=== PATIENT | female | born 1935 | race Caucasian/White ===

== ENCOUNTER 2023-02-17 15:06 | Emergency (ER) | payer MEDICARE, OTHER ==
[2023-02-17] MEDS ORDERED: Sodium Chloride 0.9% 10 ML Syringe FLUSH PRN (15:13)
[2023-02-17] MEDS ORDERED: Sodium Chloride 0.9% 1,000 ML IV ONE ×2 (15:13→18:14)
[2023-02-17 15:37] VITALS: PULSE 90
[2023-02-17] MEDS ORDERED: HYDROmorphone 0.5 MG/0.5 ML Syringe IVPUSH ONE (16:35)
[2023-02-17] MEDS ORDERED: cefTRIAXone 2 GM in Sodium Chloride 0.9% 100 ML IV ONE (16:36)
[2023-02-17 16:57] LABS: CORONAVIRUS COVID-19 NAA NEGATIVE (NEGATIVE)
[2023-02-17] MEDS ORDERED: Iopamidol 612 MG/ML 100 ML Bottle IVPUSH ONE ×2 (17:20→17:22)
[2023-02-17] MEDS ORDERED: Lactated Ringers 1,000 ML IV SCH (19:15)
[2023-02-17 19:54] VITALS: BP 96/49
== END 2023-02-17 20:40 ==
LOC: JD.ED 15:06
DX: K83.1 Obstruction of bile duct (principal); K83.09 Other cholangitis; R65.21 Severe sepsis with septic shock; I10 Essential (primary) hypertension; E78.00 Pure hypercholesterolemia, unspecified; E03.9 Hypothyroidism, unspecified; Z79.899 Other long term (current) drug therapy; Z79.02 Long term (current) use of antithrombotics/antiplatelets; Z20.822 Contact with and (suspected) exposure to COVID-19
CPT/HCPCS: 0241U; 36415; 51701; 74177; 80053; 81001; 82977; 83605; 83690; 85007; 85027; 85610; 86140; 86308; 87040; 87077; 87154; 87186; 96361; 96365; 96375; 99285; J0696; J1170; J3490; J7030; J7120; Q9967

== ENCOUNTER 2023-02-28 07:56 | Inpatient (IN) | payer MEDICARE, OTHER ==
[2023-02-28] MEDS ORDERED: Sodium Chloride 0.9% 10 ML Syringe FLUSH PRN (10:25)
[2023-02-28] MEDS ORDERED: Iopamidol 612 MG/ML 100 ML Bottle IVPUSH ONE (10:25)
[2023-02-28] MEDS ORDERED: Sodium Chloride 0.9% 250 ML IV SCH (10:30)
[2023-02-28] MEDS: Sodium Chloride 0.9% 1,000 ML IV SCH (14:59)
[2023-02-28] MEDS: Pantoprazole 40 MG Vial IVPUSH SCH (14:59)
[2023-02-28] MEDS ORDERED: Acetaminophen 325 MG Tab PO PRN (15:39)
[2023-02-28] MEDS ORDERED: Lidocaine 1% 2 ML ONE (16:37)
[2023-02-28] MEDS ORDERED: Propofol 200 MG/20 ML SDV ONE (16:37)
[2023-02-28] MEDS ORDERED: fentaNYL 100 MCG/2 ML SDV ONE (16:37)
[2023-02-28] MEDS ORDERED: Midazolam 1 MG/ML 2 ML SDV ONE (16:37)
[2023-02-28] MEDS: QUEtiapine 25 MG Tab PO SCH (20:26)
[2023-03-01] MEDS: Pantoprazole 40 MG Vial IVPUSH SCH ×2 (01:37→13:30)
[2023-03-01] MEDS: Sodium Chloride 0.9% 1,000 ML IV SCH ×2 (01:38→15:09)
[2023-03-01] MEDS: Levothyroxine 25 MCG Tab PO SCH (05:47)
[2023-03-01] MEDS ORDERED: Sodium Chloride 0.9% 250 ML IV SCH (07:00)
[2023-03-01] MEDS: Metoprolol Succinate 50 MG Tab.ER PO SCH (08:49)
[2023-03-01] MEDS: Fish Oil/Omega-3 Fatty Acids 1 Gm Cap PO SCH (08:50)
[2023-03-01] MEDS: Lisinopril 10 MG Tab PO SCH (08:50)
[2023-03-01] MEDS ORDERED: Rosuvastatin 10 MG Tab PO SCH (20:00)
[2023-03-01] MEDS: QUEtiapine 25 MG Tab PO SCH (20:29)
[2023-03-02] MEDS: Pantoprazole 40 MG Vial IVPUSH SCH (02:06)
[2023-03-02] MEDS: Sodium Chloride 0.9% 1,000 ML IV SCH (02:06)
[2023-03-02] MEDS: Levothyroxine 25 MCG Tab PO SCH (06:12)
[2023-03-02] MEDS: Lisinopril 10 MG Tab PO SCH (08:26)
[2023-03-02] MEDS: Metoprolol Succinate 50 MG Tab.ER PO SCH (08:26)
[2023-03-02] MEDS: Fish Oil/Omega-3 Fatty Acids 1 Gm Cap PO SCH (08:26)
[2023-03-02 12:02] VITALS: BP 167/76; PULSE 62
== END 2023-03-02 14:21 | DRG 378 ==
LOC: JD.ED 07:56 → JD.MS 11:55
PROVIDERS: ADMIT Surgery; ATTEND Surgery
PROC: 0DJ08ZZ Inspection of Upper Intestinal Tract, Via Natural or Artificial Opening Endoscopic (ICD-10-PCS; principal; 2023-02-28)
PROC: 30233N1 Transfusion of Nonautologous Red Blood Cells into Peripheral Vein, Percutaneous Approach (ICD-10-PCS; 2023-03-01)
DX: K25.4 Chronic or unspecified gastric ulcer with hemorrhage (principal); D62 Acute posthemorrhagic anemia; E03.9 Hypothyroidism, unspecified; E78.00 Pure hypercholesterolemia, unspecified; I10 Essential (primary) hypertension; H54.7 Unspecified visual loss; Z95.5 Presence of coronary angioplasty implant and graft; Z79.890 Hormone replacement therapy; Z79.899 Other long term (current) drug therapy; Z90.49 Acquired absence of other specified parts of digestive tract; Z98.890 Other specified postprocedural states
CPT/HCPCS: 00731; 36415; 36430; 74177; 74177-26; 80048; 80053; 85014; 85018; 85025; 86850; 86900; 86901; 86922; 94761; 96360; 99100; 99285; 99285-25; A9270-GY; C9113; J2250; J2704; J3010; J3490; J7030; J7050; P9016; Q9967